=== PATIENT | female | born 1970 | race Hispanic/Latino ===

== ENCOUNTER → 2017-11-02 | Outpatient (CLI) | payer OTHER ==
[~2017-11-02] MED LIST: LORAZEPAM INJ 2 MG/ML VIAL ONE
--- NOTE | 2017-11-02 11:34 | Diagnostic Imaging Report ---
MRI of the right shoulder without contrast. History: Shoulder pain. Decreased range of motion. Pain worse with lifting. Pain not responding to conservative management Comparison: None Technique: Coronal PD FS, sagital PD FS, and axial PD and PD FS. Findings: Rotator cuff: There is rotator cuff tendinosis with midsubstance degeneration and fraying involving the anterior fibers of the supraspinatus and infraspinatus tendons at the humeral insertion site. This is best seen on sagittal series 4 image 12 through 18. Additionally, there is subscapularis tendinosis. The teres minor tendon is intact. Osseous acromion complex: There is a type II acromion with mild lateral downsloping. There is moderate degenerative arthrosis at the acromioclavicular joint with undersurface spurring and narrowing of the supraspinatus tendon outlet. There is a moderate amount of bone marrow edema in the distal clavicle and acromion with mild adjacent soft tissue edema which is thought to be stress related/reactive. This is best seen on sagittal series 5 image 8 through 15. Glenohumeral joint: There is degeneration of the labrum. The articular cartilage surfaces are intact. The humeral head is well-seated in the glenoid fossa. Biceps tendon: The biceps tendon is intact. Other findings: Negative for muscle denervation or osseous fracture. Impression: Moderate amount of bone marrow edema in the distal clavicle and acromion with mild adjacent soft tissue edema which is thought to be stress related/reactive. Rotator cuff tendinosis with midsubstance degeneration and fraying involving the anterior fibers of the supraspinatus and infraspinatus tendons at the humeral insertion site. Signed by: Dr. Joni Mitchell M.D. on 11/02/2017 11:31 AM
== END ==
LOC: MRI 10-26 07:20
PROVIDERS: ATTEND Family Medicine
DX: S13.9XXD Sprain of joints and ligaments of unspecified parts of neck, subsequent encounter (principal); S43.401D Unspecified sprain of right shoulder joint, subsequent encounter
CPT/HCPCS: 73221; J2060

== ENCOUNTER 2024-03-07 21:07 | Emergency (ER) | payer BC ==
[~2024-03-07] VITALS: Ht 165.1 cm; Wt 86.2 kg
[~2024-03-07 21:07] MED LIST changes: +BUSPIRONE HCL10 MG PO; +CENTRUM ADULTS1 EACH PO; -LORAZEPAM INJ 2 MG/ML VIAL ONE; +LOSARTAN-HCTZ1 EACH PO; +MAGNESIUM500 MG PO; +ZEBETA10 MG PO
[2024-03-07 21:53] LABS: BASOPHILS % 0.7 % (0.0-1.0); EOSINOPHILS # (AUTO) 0.1 (0.0-0.4); EOSINOPHILS % 1.9 % (0.0-6.0); HEMATOCRIT 38.6 % (34.2-44.1); HEMOGLOBIN 13.5 g/dL (12.0-16.0); LYMPHOCYTES # (AUTO) 2.1 (1.0-3.2); LYMPHOCYTES % 36.4 % (18.0-39.1); MEAN CORPUSCULAR HEMOGLOBIN 29.1 pg (28-32); MEAN CORPUSCULAR VOLUME 83.2 fL (81-99); MONOCYTES # (AUTO) 0.4 (0.2-0.8); MONOCYTES % 7.5 % (4.4-11.3); NEUTROPHILS # (AUTO) 3.1 (2.1-6.9); NEUTROPHILS % 53.3 % (38.7-80.0); PLATELET COUNT 194 x10e3/uL (140-360); RED BLOOD COUNT 4.64 x10e6/uL (3.6-5.1); RED CELL DISTRIBUTION WIDTH 12.5 % (11.7-14.4); WHITE BLOOD COUNT 5.83 x10e3/uL (4.8-10.8)
[2024-03-07] MEDS: ASPIRIN 81 MG CHEW TAB PO ONE (21:56)
[2024-03-07 22:10] LABS: ALANINE AMINOTRANSFERASE 30 IU/L (0-55); ALBUMIN 4.3 g/dL (3.5-5.0); ALBUMIN/GLOBULIN RATIO 1.3 (0.8-2.0); ALKALINE PHOSPHATASE 45 IU/L (40-150); ANION GAP 15.6 mmol/L (8-16); BILIRUBIN,TOTAL 0.6 mg/dL (0.2-1.2); BLOOD UREA NITROGEN 21 mg/dL (7-26); BUN/CREATININE RATIO 22 (6-25); CALCIUM 9.8 mg/dL (8.4-10.2); CARBON DIOXIDE 24 mmol/L (22-29); CHLORIDE 107 mmol/L (98-107); CREATINE KINASE 70 IU/L (29-168); CREATININE, SERUM 0.96 mg/dL (0.57-1.11); EST GLOMERULAR FILTRATION RATE 70 ML/MIN (>=60); GLUCOSE 113 mg/dL (74-118); POTASSIUM 3.6 mmol/L (3.5-5.1); SODIUM 143 mmol/L (136-145); TOTAL PROTEIN 7.7 g/dL (6.5-8.1)
[2024-03-07] MEDS: METHYLPREDNISOLONE SOD SUCC 125 MG/2ML VIAL IV STA (22:12)
[2024-03-07] MEDS: DIPHENHYDRAMINE HCL INJ 50 MG/ML VIAL IV STA (22:13)
[2024-03-07 22:32] VITALS: PULSE 59; RESP 16; TEMP 98.1
[2024-03-07 22:50] LABS: TROPONIN I < 0.001 ng/mL (0-0.300)
[2024-03-07] MEDS ORDERED: IOPAMIDOL 370 MG/ML 100 ML INFUS..BTL INJ ONE (23:03)
[2024-03-08] MEDS: KETOROLAC TROMETHAMINE 30 MG/ML VIAL IV STA (00:05)
[2024-03-08] MEDS: FAMOTIDINE 20 MG/2 ML VIAL IV STA (00:06)
[2024-03-08 01:09] VITALS: BP 135/74; PULSE 60; RESP 17; TEMP 98.3; O2SAT 97
== END 2024-03-08 01:10 | disposition home or self-care (01) ==
LOC: ER 21:13
DX: R00.2 Palpitations (principal); R07.9 Chest pain, unspecified; I10 Essential (primary) hypertension; R94.31 Abnormal electrocardiogram [ECG] [EKG]
CPT/HCPCS: 36415; 71260; 80053; 82550; 83690; 83880; 84484; 85025; 93005; 99284; J1200; J1885; J2919; Q9967

== ENCOUNTER → 2024-04-04 | Day surgery (SDC) | payer BC ==
[~2024-04-04] MED LIST changes: +DEXMEDETOMIDINE HCL 200 MCG/2 ML VIAL ONE; +FENTANYL CITRATE/PF 100MCG/2 ML INJ ONE; +LIDOCAINE HCL 2% LOCAL INJ 5 ML SDV VIAL INJ ONE; +PROPOFOL IV EMULSION 10 MG/ML 50 ML VIAL IV ONE
[2024-04-04] MEDS: LACTATED RINGER'S 1,000 ML ONE (12:02)
[2024-04-04 14:40] VITALS: TEMP 97
[2024-04-04 15:10] VITALS: BP 116/65; PULSE 59; RESP 15; O2SAT 99
== END | disposition home or self-care (01) ==
LOC: ENDO 11:18
PROVIDERS: ATTEND Internal Medicine Gastroenterology
DX: K21.00 Gastro-esophageal reflux disease with esophagitis, without bleeding (principal); K29.70 Gastritis, unspecified, without bleeding; K29.80 Duodenitis without bleeding; I10 Essential (primary) hypertension; E66.01 Morbid (severe) obesity due to excess calories; F41.9 Anxiety disorder, unspecified; Z91.041 Radiographic dye allergy status; Z79.899 Other long term (current) drug therapy; Z79.1 Long term (current) use of non-steroidal anti-inflammatories (NSAID); Z68.31 Body mass index [BMI] 31.0-31.9, adult; Z86.73 Personal history of transient ischemic attack (TIA), and cerebral infarction without residual deficits
CPT/HCPCS: 43239; 43450; J2001; J2470; J2704; J3010; J7121